=== PATIENT | female | born 1935 | race Caucasian/White ===

== ENCOUNTER 2021-10-13 22:10 | Emergency (ER) | payer MEDICARE ==
[2021-10-14 00:18] LABS: BASOPHIL 0.7 % (0-2); EOSINOPHIL 1.9 % (0-7); HCT 37.6 % (37.0-47.0); LYMPHOCYTE 13.9 % (15-48); MCH 31.4 pg (25.0-31.0); MCHC 31.9 g/dL (32.0-36.0); MCV 98.4 fL (78.0-100.0); MONOCYTE 9.3 % (0-12); MPV 10.3 fL (6.0-9.5); NEUTROPHIL 73.9 % (41-80); NRBC 0; PLT 215 K/uL (150-400); RBC 3.82 M/uL (4.20-5.40); RDW 12.9 % (11.5-14.0); WBC 7.4 K/uL (4.0-10.5)
[2021-10-14 00:37] LABS: ALBUMIN 4.2 g/dL (3.4-5.0); BILIRUBIN - TOTAL 0.3 mg/dL (0.2-1.0); BUN/CREAT RATIO (CALC) 27.2 RATIO; CREATININE 0.92 mg/dL (0.51-0.95); GLOBULIN (CALCULATION) 3.5 g/dL; POTASSIUM 4.7 mmol/L (3.5-5.1); TOTAL PROTEIN 7.7 g/dL (6.4-8.2)
== END 2021-10-14 02:53 | disposition home or self-care (01) ==
LOC: FER 22:10
PROVIDERS: Emergency Medicine
DX: M94.0 Chondrocostal junction syndrome [Tietze] (principal); R10.11 Right upper quadrant pain; F03.90 Unspecified dementia, unspecified severity, without behavioral disturbance, psychotic disturbance, mood disturbance, and anxiety; Z28.310 Unvaccinated for COVID-19
CPT/HCPCS: 36415; 71045; 71275; 80053; 84484; 85025; 93005; J1885; Q9967